=== PATIENT | female | born 1980 | race Two or more races ===

== ENCOUNTER → 2017-01-05 | Day surgery (SDC) | payer BC ==
[~2017-01-05] VITALS: Ht 167.6 cm; Wt 59.0 kg
[2017-01-05] VITALS (8 sets, daily range): BP systolic 101–132; BP diastolic 60–84
[~2017-01-05] MED LIST: LR 1000ml ONE; Lidocaine 1% MPF 10mg/ml 5ml ONE; NKM; Propofol 10mg/ml 20ml IV ONE
--- NOTE | 2017-01-05 08:04 | Short Stay Surgery H&P ---
History of Present Illness History of Present Illness Chief Complaint Screening for gastric cancer for the family history of gastric cancer and GERDs. KITTY Chaidez is a 36 year old female who was admitted on for GERDS/ Gastric cancer screening. Review of Systems Cardiovascular: Reports: no symptoms Respiratory: Reports: no symptoms Skeletal: Reports: no symptoms Genitourinary: Reports: no symptoms Neurologic: Reports: no symptoms Endocrine: Reports: no symptoms Hematologic: Reports: no symptoms Physical Exam Skin: normal HENT: normal Heart: normal Lungs: normal Abdomen: normal Extremities: normal Genitourinary: normal Plan Plan of Care Upper GI endoscopy Preop Interventions None. Summary of Findings See the report. Final Diagnosis: Attestation Are the patient's medical conditions optimized for surgery? Attestation Response: yes ROSEY CHIN Jan 05, 2017 08:04
--- NOTE | 2017-01-05 08:05 | Pre-Procedure Note/Attestation ---
Pre-Procedure Note/Attestation Complete Prior to Procedure Planned Procedure: left Procedure Narrative: Upper GI endoscopy Indications for Procedure Pre-Operative Diagnosis: R/O Gastric/CA Attestation I attest that I discussed the nature of the procedure; its benefits; risks and complications; and alternatives (and the risks and benefits of such alternatives ), prior to the procedure, with the patient (or the patient's legal human resources representative). I attest that, if there was a reasonable possibility of needing a blood transfusion, the patient (or the patient's legal human resources representative) was given the [facility] standardized written summary, pursuant to the Jose Beltran Blood Safety Act ([place] Health and Safety Code # 1645, as amended). I attest that I re-evaluated the patient just prior to the surgery and that there has been no change in the patient's H&P, except as documented below: GIUSEPPE,SAID Jan 05, 2017 08:05
--- NOTE | 2017-01-05 08:20 | Anethesia Preoperative Eval ---
Anesthesia Pre-op PMH/ROS General Date of Evaluation: Jan 05, 2017 Time of Evaluation: 08:20 Anesthesiologist: ryan ASA Score: ASA 1 Mallampati Score Class I : Soft palate, uvula, fauces, pillars visible Class II: Soft palate, uvula, fauces visible Class III: Soft palate, base of uvula visible Class IV: Only hard plate visible Mallampati Classification: Class I Surgeon: syd Diagnosis: hx of cancer Surgical Procedure: egd/colonoscopy Anesthesia History: none Family History: no anesthesia problems Medications: see eMAR Past Medical History Cardiovascular: Denies: CAD, HTN, NV, arrhythmia, other, valve dz Pulmonary: Denies: COPD, YUN, asthma, other Gastrointestinal/Genitourinary: Denies: CRI, ESRD, GERD, other Neurologic/Psychiatric: Denies: CVA, TIA, dementia, depression/anxiety, other Endocrine: Denies: DM, hypothyroidism, other, steroids HEENT: Denies: [place] (L), [place] (R), cataract (L), cataract (R), glaucoma, other Hematology/Immune: Denies: DVT, anemia, bleeding disorder, other Musculoskeletal/Integumentary: Denies: DDD, DJD, OA, RA, edema, other PMH Narrative: family hx of gastric ca PSxH Narrative: none Anesthesia Pre-op Phys. Exam Physician Exam Constitutional: NAD Neurologic: CN 2-12 intact Cardiovascular: RRR Respiratory: CTA Gastrointestinal: S/NT/ND Airway Exam Mallampati Classification 2 Mallampati Score: Class I MO: full ROM: full Dentures: no lower, no upper Anesthesia Pre-op A/P Studies Pre-op Studies: EKG Risk Assessment & Plan Plan: mac Status Change Before Surgery: No Pre-Antibiotics Drug: none DIAMONDRILLIONMEERA [employer]VEL MONE[employer] ADVISOR Jan 05, 2017 08:20
--- NOTE | 2017-01-05 09:05 | Endoscopy Procedure Note ---
Endoscopy Procedure Note Indication for Procedure: History of familial gastric cancer Procedures Performed: EGD - Mild gastritis with dotted submucosal hemorrhagic spots nover the greator curvator fundus are, looking benign. No evidence of gastric cancer or tumors/ulcers. Numserous biopsies obtained from diffeent parst of stomach. Specimen: yes Pt Tolerated Procedure Well: Yes Estimated Blood Loss: none Anesthesiologist: Dr. Juárez Anesthesia: moderate sedation Medication Given: see anesthesia record Implant(s) used?: No 50 yrs or older w/o bx or poly: Not Applicable 10yrs. F/U not recommended: Not Applicable If not recommended, why?: Med reason:<3 yrs.: System Reason:<3 yrs.: ROSEY CHIN Jan 05, 2017 09:05
--- NOTE | 2017-01-05 09:06 | Discharge Instructions ---
Discharge Instructions Discharge Instructions Follow up with: Visit the coctor in office after two weeks. For Congestive Heart Failure Reminder Report to your physician any weight gain of 5 pounds or more in one week. ROSEY CHIN Jan 05, 2017 09:06
--- NOTE | 2017-01-05 09:26 | Immediate Post-Op Evaluation ---
Immediate Post-Op Evalulation Immediate Post-Op Evalulation Procedure: EGD with Bx Date of Evaluation: Jan 05, 2017 Time of Evaluation: 09:10 IV Fluids: 300 Blood Pressure Systolic: 112 Blood Pressure Diastolic: 60 Pulse Rate: 60 O2 Sat by Pulse Oximetry: 99 Temperature (Fahrenheit): 97.5 Nausea: No Vomiting: No Patient Status: awake, patent Hydration Status: adequate Drug: none MEERA URIAS CRNA Jan 05, 2017 09:26
--- NOTE | 2017-01-05 09:27 | 48 Hour Post Anesthesia Eval ---
Post Anesthesia Evaluation Procedure: EGD with Bx Date of Evaluation: Jan 05, 2017 Time of Evaluation: 09:27 Blood Pressure Systolic: 132 0: 74 Pulse Rate: 60 O2 Sat by Pulse Oximetry: 99 Airway: patent Nausea: No Vomiting: No Hydration Status: adequate Cardiopulmonary Status: normal Mental Status/LOC: patient returned to baseline Post-Anesthesia Complications: none Follow-up care needed: N/A MEERA URIAS CRNA Jan 05, 2017 09:27
--- NOTE | 2017-01-05 16:59 | Operative Note - Dictated ---
PROCEDURE: Esophagogastroduodenoscopy with multiple biopsies. PREOPERATIVE DIAGNOSES: History of familial cancer and heartburn. POSTOPERATIVE DIAGNOSES: Mild gastritis with punctuated submucosal hemorrhagic spots over the posterior wall of the stomach in the antral area. Biopsy looked benign. Otherwise, complete normal upper gastrointestinal endoscopy. No evidence of gastric cancer. MEDICATIONS USED: Per Dr. Gonzalez, anesthesiologist. INSTRUMENT: GIF Olympus upper gastrointestinal video endoscope. DESCRIPTION OF PROCEDURE: The patient after arriving endoscopy unit, was told about risks and benefits of the procedure, which she accepted and signed the informed consent. At this time, after adequate IV sedation, the scope was gently passed through the cricopharyngeal area, was lodged into the upper esophagus, and gradually advanced towards gastroesophageal junction. The entire length of the esophagus looked normal and there was no any evidence of inflammatory process, ulceration, exudate, stricture, etc. At this time, the scope reached toward normal looking gastroesophageal junction, which revealed normal finding without any evidence of Pillai's or hiatal hernia. At this point, the scope was advanced into the stomach and gastric cavity was distended with insufflation of air. Gradually, the areas of the fundus and the body and the antrum were examined and it revealed evidence of very minimal gastritis with the presence of erythema mostly in the pre-pyloric area and also submucosal, as part of hemorrhagic spots over the fundus and greater curvature site of the stomach. These areas looked benign however and they were very mild of no great significance. However, numerous biopsies were taken from different parts of the stomach to make sure that there was no any other underlying abnormalities such as cancer that the patient has claimed the family does have the tendency from mother and grandmother. At this point, the scope was pushed into the pylorus. First and second portion of duodenum were found to be completely normal. Finally, scope was pulled out and the procedure was terminated. The patient tolerated the procedure well and left the endoscopy room in good condition. Said Faiza Barnett DR: HEIDI JOB#: [id number] CC:
== END | disposition home or self-care (01) ==
LOC: GAS 08:03
DX: Z12.0 Encounter for screening for malignant neoplasm of stomach (principal); K29.51 Unspecified chronic gastritis with bleeding; B96.81 Helicobacter pylori [H. pylori] as the cause of diseases classified elsewhere; R12 Heartburn; Z80.0 Family history of malignant neoplasm of digestive organs
CPT/HCPCS: 43239; 81025; J2704; J7120; 94003; 94150